=== PATIENT | male | born 1980 | race Caucasian/White ===

== ENCOUNTER 2020-06-12 11:28 | Observation (INO) | payer SELFPAY ==
[2020-06-12] VITALS (7 sets, daily range): BP systolic 111–137; BP diastolic 70–84; PULSE 70–101; RESP 16–18; TEMP 35.8–36.7; O2SAT 90–100; BMI 22.3
--- NOTE | 2020-06-12 11:38 | CT_ITS ---
WS: [id number] CT NECK TECHNIQUE: Contrast-enhanced CT of the neck with coronal and sagittal reformatted images. CLINICAL INFORMATION: peritonsillar abscess; swollen uvula COMPARISON: None. DLP: 621.[address] scans at [facility] use at least one of these dose optimization techniques: automat ed exposure control; mA and/or kV adjustment per patient size (includes targeted exams where dose is matched to clinical indication); or iterative reconstruction. FINDINGS: Heterogeneously enhancing central low attenuation left tonsillar and peritonsillar abscess measuring 1.8 x 3.1 x 2.7 CM. Associated edema and mass effect in the posterior oropharynx and parapharyngeal f at. Diffuse edema with enlargement of the uvula. Left to right mass effect on the adjacent airway wit h mild oropharyngeal narrowing. Edema in the left pharyngeal soft tissues extending to the vallecula and left piriform sinus. Subglottic airway is patent. Normal glottis. Reactive left submandibular and cervical lymph nodes.Normal thyroid gland. Lung apices are well aerat ed. Mastoid air cells and paranasal sinuses are well aerated. Partially visualized intracranial jennifer nts are normal. CT/CT neck w con* [id number] IMPRESSION: 1. Left tonsillar and peritonsillar abscess with central low-attenuation hsieh e and thick peripheral enhancement. This measures 1.8 x 3.0 x 2.8 cm. 2. Associated mass effect on the left oropharynx with mild oropharyngeal narro wing. Edema in the left parapharyngeal soft tissues. 3. Diffuse edema with enlargement of the uvula. 4. Enlarged reactive left subarticular cervical lymphadenopathy. 5. Normal glottis and subglottic airway. 6. Paranasal sinuses and mastoid air cells are well aerated. Notified GUANAKO Centeno at 06/12/2020 12:09 PM.
--- NOTE | 2020-06-12 11:41 | W.ED.GENADLT ---
Documented by User: GUANAKO Centeno 06/12/20 13:57 HPI - General Adult General: Chief complaint: General Medical Stated complaint: SWOLLEN THROAT Time Seen by Provider: 06/12/20 11:29 Source: patient Mode of arrival: ambulatory Limitations: no limitations History of Present Illness: HPI narrative: Patient is a nice 40-year-old male who presents to ED today for evaluation of a sore throat. Patient tells me his throat began hurting on Thursday. He states since that time it has progressively worsened, feeling more and more swollen. Patient tells me he is having trouble drinking and controlling his saliva. He has not been running fevers. No sick contacts. Onset (ago): day(s) Location: mouth (throat) Severity: severe Pain Consistency: constant Relieving factors: none Exacerbating factors: other (swallowing/talking) Associated symptoms: Reports no associated symptoms; Deny chest pain, dyspnea, headache(s), malaise, nausea, rash or vomiting Treatments prior to arrival: none Review of Systems Const: Denies: fever(s), chills, body aches, fatigue or malaise Eyes: Denies: change in vision, blurry vision or photophobia ENMT: Reports: throat pain, uvular edema, enlarged tonsils and odynophagia Card: Denies: chest pain Resp: Denies: dyspnea GI: Denies: abdominal pain, nausea or vomiting Musc: Denies: neck pain, back pain or joint pain Skin/Breast: Denies: rash Neuro: Denies: headache(s) Physical Exam Const: COMMON NORMALS: no acute distress, average body habitus, patient oriented x3, no limitations, healthy appearing, alert and well nourished GENERAL APPEARANCE: cooperative ORIENTATION/CONSCIOUSNESS: Yes awake, Yes oriented to person, Yes oriented to place and Yes oriented to time HENMT: COMMON NORMALS: normocephalic, atraumatic, hearing grossly normal bilaterally, external ears normal, EAC's normal, TM's normal bilaterally, Normal external nose present and gingiva normal HEAD & SCALP: normal to inspection, normocephalic and atraumatic FACE & SINUS: normal facial exam NOSE: Normal external nose present EXTERNAL EAR: Yes external ears normal EXTERNAL AUDITORY CANAL: EAC's normal TYMPANIC MEMBRANE: TM's normal bilaterally THROAT: peritonsillar mass, posterior oropharynx abnormal and uvular edema OTHER: hot potato voice; 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 HAND; swelling extends into his uvula so much so that it looks like one large collection; because of this there is no obvious uvular deviation Eye: GENERAL EYE: appearance normal, both eyes and all related structures Neck/C-Spine: COMMON NORMALS: full ROM and no meningeal signs GENERAL: No anterior neck swelling and Yes lymphadenopathy Lymphadenopathy location: anterior cervical CERVICAL SPINE: Yes cervical ROM normal Resp: COMMON NORMALS: normal respiratory effort and clear to auscultation bilaterally AUSCULTATION: clear to auscultation bilaterally Cardio: COMMON NORMALS: regular rhythm RATE: tachycardic (very mild) RHYTHM: regular rhythm Neuro: ABEL COMA SCALE: document GCS findings Abel coma scale eye opening: Spontaneous Abel coma scale verbal response: Orientated Abel coma scale motor response: Obey commands Abel coma scale total score: 15 COMMON NORMALS: patient oriented x3 SENSORIUM/ORIENTATION: Yes alert, Yes oriented to person, Yes oriented to place and Yes oriented to time MENINGEAL SIGNS: Yes no meningeal signs Skin: COMMON NORMALS: no rashes or lesions noted GENERAL SKIN EXAM: no rashes or lesions noted Course Consultations: Consultation #1: Dr. Stokes-recommends admitting to hospitalist and he will evaluate and potentially drain ENDBAND CUTTER HAND this evening Vital Signs: Vital signs: Vital Signs Temperature 98.0 F 06/12/20 11:35 Pulse Rate 74 06/12/20 14:07 Respiratory Rate 18 06/12/20 14:07 Blood Pressure 129/74 06/12/20 14:07 Pulse Oximetry 97 06/12/20 14:07 MDM - General Adult MDM Narrative: Medical decision making narrative: Patient is a nice 40-year-old male here with a left-sided peritonsillar abscess. He is having trouble swallowing and controlling his secretions. His airway is patent evident on his CT scan. Patient was started on IV dexamethasone and clindamycin. I have spoken to Dr. Stokes, ENT who recommends admit to hospitalist and he will consult on patient this evening. Patient is mildly tachycardic. He has a 22,000 white count. Lactate is normal. Strep is negative. Lab Data: Labs: Lab Results 06/12/20 06/12/20 06/12/20 Range/Units 11:45 11:45 11:45 WBC 22.6 H (4.0-10.0) 10^3/ uL RBC 5.12 (4.1-5.3) 10^6/u L Hgb 16.1 (11.7-16.6) g/dL Hct 47.5 (42.0-52.0) % MCV 92.8 (80-94) fL MCH 31.4 (28.0-34.0) pg MCHC 33.9 (30.0-36.0) g/dL RDW 12.0 L (12.1-15.1) % Plt Count 226 (130-400) 10^3/c mm MPV 9.6 (7.4-10.4) fL Neut % (Auto) 82.1 % Lymph % (Auto) 8.3 % Mower % (Auto) 8.0 % Eos % (Auto) 0.4 % Baso % (Auto) 0.4 % Neut # (Auto) 18.54 H (1.8-7.7) 10^3/u L Lymph # (Auto) 1.9 (0.8-4.8) 10^3/u L Mower # (Auto) 1.8 H (0.2-0.9) 10^3/u L Eos # (Auto) 0.1 (0.0-0.8) 10^3/u L Baso # (Auto) 0.1 (0.0-0.1) 10^3/u L Nucleated RBC % (a uto) 0 % Nucleated RBCs # 0.0 /100WBC Sodium 137 (136-145) mmol/L Potassium 4.4 (3.5-5.1) mmol/L Chloride 100 (98-107) mmol/L Carbon Dioxide 27 (22-29) mmol/L Anion Gap 14.4 (5-19) BUN 6 (6-20) mg/dL Creatinine 0.7 (0.7-1.2) mg/dL GFR Calculation 124.9 (90-130) mL/min Glucose 123 H (65-115) mg/dL Calculated Osmolal ity 283 L (285-295) mOsm/k g Lactic Acid 1.6 (0.5-2.2) mmol/L Calcium 9.4 (8.5-10.5) mg/dL Total Bilirubin 1.4 H (0.15-1.2) mg/dL AST 13 (0-40) U/L ALT 11 (0-41) U/L Alkaline Phosphata se 89 (40-130) IU/L Total Protein 7.6 (6.6-8.7) g/dL Albumin 4.4 (3.5-5.2) g/dL Globulin 3.2 (1.3-4.6) g/dL Group A Strep Rapi d (Negative) 06/12/20 Range/Units 12:03 WBC (4.0-10.0) 10^3/ uL RBC (4.1-5.3) 10^6/u L Hgb (11.7-16.6) g/dL Hct (42.0-52.0) % MCV (80-94) fL MCH (28.0-34.0) pg MCHC (30.0-36.0) g/dL RDW (12.1-15.1) % Plt Count (130-400) 10^3/c mm MPV (7.4-10.4) fL Neut % (Auto) % Lymph % (Auto) % Mower % (Auto) % Eos % (Auto) % Baso % (Auto) % Neut # (Auto) (1.8-7.7) 10^3/u L Lymph # (Auto) (0.8-4.8) 10^3/u L Mower # (Auto) (0.2-0.9) 10^3/u L Eos # (Auto) (0.0-0.8) 10^3/u L Baso # (Auto) (0.0-0.1) 10^3/u L Nucleated RBC % (a uto) % Nucleated RBCs # /100WBC Sodium (136-145) mmol/L Potassium (3.5-5.1) mmol/L Chloride (98-107) mmol/L Carbon Dioxide (22-29) mmol/L Anion Gap (5-19) BUN (6-20) mg/dL Creatinine (0.7-1.2) mg/dL GFR Calculation (90-130) mL/min Glucose (65-115) mg/dL Calculated Osmolal ity (285-295) mOsm/k g Lactic Acid (0.5-2.2) mmol/L Calcium (8.5-10.5) mg/dL Total Bilirubin (0.15-1.2) mg/dL AST (0-40) U/L ALT (0-41) U/L Alkaline Phosphata se (40-130) IU/L Total Protein (6.6-8.7) g/dL Albumin (3.5-5.2) g/dL Globulin (1.3-4.6) g/dL Group A Strep Rapi d Negative (Negative) Imaging Data^: CT neck: Radiologist's impression: [facility] [address] [place] [address] CT Scan Report Signed Patient: Sam Maldonado Unit #: [id number] : [id number] Age/Sex: 40 / M ADM Date: 06/12/20 Loc: ER Room/Bed: Attending Dr: Ordering Provider/Ordering MD: Tierra Reid Date of Service: 06/12/20 Procedure(s): CT neck w con* [id number] Accession Number(s): [id number] Report Number: [id number] WS: [id number] CT NECK TECHNIQUE: Contrast-enhanced CT of the neck with coronal and sagittal reformatted images. CLINICAL INFORMATION: peritonsillar abscess; swollen uvula COMPARISON: None. DLP: 621.[address] scans at [facility] use at least one of these dose optimization techniques: automated exposure control; mA and/or kV adjustment per patient size (includes targeted exams where dose is matched to clinical indication); or iterative reconstruction. FINDINGS: Heterogeneously enhancing central low attenuation left tonsillar and peritonsillar abscess measuring 1.8 x 3.1 x 2.7 CM. Associated edema and mass effect in the posterior oropharynx and parapharyngeal fat. Diffuse edema with enlargement of the uvula. Left to right mass effect on the adjacent airway with mild oropharyngeal narrowing. Edema in the left pharyngeal soft tissues extending to the vallecula and left piriform sinus. Subglottic airway is patent. Normal glottis. Reactive left submandibular and cervical lymph nodes.Normal thyroid gland. Lung apices are well aerated. Mastoid air cells and paranasal sinuses are well aerated. Partially visualized intracranial contents are normal. CT/CT neck w con* [id number] IMPRESSION: 1. Left tonsillar and peritonsillar abscess with central low-attenuation change and thick peripheral enhancement. This measures 1.8 x 3.0 x 2.8 cm. 2. Associated mass effect on the left oropharynx with mild oropharyngeal narrowing. Edema in the left parapharyngeal soft tissues. 3. Diffuse edema with enlargement of the uvula. 4. Enlarged reactive left subarticular cervical lymphadenopathy. 5. Normal glottis and subglottic airway. 6. Paranasal sinuses and mastoid air cells are well aerated. Notified GUANAKO Centeno at 06/12/2020 12:09 PM. Dictated By: Zach Almendarez MD Signed By: Zach Almendarez MD Signed Date/Time: 06/12/20 1209 DD/ 1200 Discharge Plan Discharge Patient Disposition: Admitted As Inpatient Clinical Impression: Peritonsillar abscess Condition: Stable Coding Level of Care Code ED Mop Maker for Chg Fwd Exam Comprehensive Documented by User: Aden Das MD 06/12/20 14:21 HPI - General Adult General: Chief complaint: General Medical Stated complaint: SWOLLEN THROAT Time Seen by Provider: 06/12/20 11:29 Course Vital Signs: Vital signs: Vital Signs Temperature 98.0 F 06/12/20 11:35 Pulse Rate 74 06/12/20 14:07 Respiratory Rate 18 06/12/20 14:07 Blood Pressure 129/74 06/12/20 14:07 Pulse Oximetry 97 06/12/20 14:07 MDM - General Adult MDM Narrative: Medical decision making narrative: Took over care of this patient from midlevel provider. Discussed with who accepts to [facility]. Dr. Stokes is to see the patient tonight. No dyspnea in the ED. Dr. Stokes may drain later today. Lab Data: Labs: Lab Results 06/12/20 06/12/20 06/12/20 Range/Units 11:45 11:45 11:45 WBC 22.6 H (4.0-10.0) 10^3/ uL RBC 5.12 (4.1-5.3) 10^6/u L Hgb 16.1 (11.7-16.6) g/dL Hct 47.5 (42.0-52.0) % MCV 92.8 (80-94) fL MCH 31.4 (28.0-34.0) pg MCHC 33.9 (30.0-36.0) g/dL RDW 12.0 L (12.1-15.1) % Plt Count 226 (130-400) 10^3/c mm MPV 9.6 (7.4-10.4) fL Neut % (Auto) 82.1 % Lymph % (Auto) 8.3 % Mower % (Auto) 8.0 % Eos % (Auto) 0.4 % Baso % (Auto) 0.4 % Neut # (Auto) 18.54 H (1.8-7.7) 10^3/u L Lymph # (Auto) 1.9 (0.8-4.8) 10^3/u L Mower # (Auto) 1.8 H (0.2-0.9) 10^3/u L Eos # (Auto) 0.1 (0.0-0.8) 10^3/u L Baso # (Auto) 0.1 (0.0-0.1) 10^3/u L Nucleated RBC % (a uto) 0 % Nucleated RBCs # 0.0 /100WBC Sodium 137 (136-145) mmol/L Potassium 4.4 (3.5-5.1) mmol/L Chloride 100 (98-107) mmol/L Carbon Dioxide 27 (22-29) mmol/L Anion Gap 14.4 (5-19) BUN 6 (6-20) mg/dL Creatinine 0.7 (0.7-1.2) mg/dL GFR Calculation 124.9 (90-130) mL/min Glucose 123 H (65-115) mg/dL Calculated Osmolal ity 283 L (285-295) mOsm/k g Lactic Acid 1.6 (0.5-2.2) mmol/L Calcium 9.4 (8.5-10.5) mg/dL Total Bilirubin 1.4 H (0.15-1.2) mg/dL AST 13 (0-40) U/L ALT 11 (0-41) U/L Alkaline Phosphata se 89 (40-130) IU/L Total Protein 7.6 (6.6-8.7) g/dL Albumin 4.4 (3.5-5.2) g/dL Globulin 3.2 (1.3-4.6) g/dL Group A Strep Rapi d (Negative) 06/12/20 Range/Units 12:03 WBC (4.0-10.0) 10^3/ uL RBC (4.1-5.3) 10^6/u L Hgb (11.7-16.6) g/dL Hct (42.0-52.0) % MCV (80-94) fL MCH (28.0-34.0) pg MCHC (30.0-36.0) g/dL RDW (12.1-15.1) % Plt Count (130-400) 10^3/c mm MPV (7.4-10.4) fL Neut % (Auto) % Lymph % (Auto) % Mower % (Auto) % Eos % (Auto) % Baso % (Auto) % Neut # (Auto) (1.8-7.7) 10^3/u L Lymph # (Auto) (0.8-4.8) 10^3/u L Mower # (Auto) (0.2-0.9) 10^3/u L Eos # (Auto) (0.0-0.8) 10^3/u L Baso # (Auto) (0.0-0.1) 10^3/u L Nucleated RBC % (a uto) % Nucleated RBCs # /100WBC Sodium (136-145) mmol/L Potassium (3.5-5.1) mmol/L Chloride (98-107) mmol/L Carbon Dioxide (22-29) mmol/L Anion Gap (5-19) BUN (6-20) mg/dL Creatinine (0.7-1.2) mg/dL GFR Calculation (90-130) mL/min Glucose (65-115) mg/dL Calculated Osmolal ity (285-295) mOsm/k g Lactic Acid (0.5-2.2) mmol/L Calcium (8.5-10.5) mg/dL Total Bilirubin (0.15-1.2) mg/dL AST (0-40) U/L ALT (0-41) U/L Alkaline Phosphata se (40-130) IU/L Total Protein (6.6-8.7) g/dL Albumin (3.5-5.2) g/dL Globulin (1.3-4.6) g/dL Group A Strep Rapi d Negative (Negative) Discharge Plan Discharge Patient Disposition: Admitted As Inpatient Clinical Impression: Peritonsillar abscess Condition: Stable Coding Level of Care Code ED Mop Maker for Nahomy Fwd Exam Comprehensive
[2020-06-12] MEDS: iohexol 300 mg/mL 100 mL Btl IV (11:53)
[2020-06-12] MEDS: dexamethasone 10 mg/mL INJ IM (11:57)
[2020-06-12] MEDS: clindamycin 900 MG/50 ML PREMIX 100 MG IV (11:58)
[2020-06-12 12:03] LABS: Basophils # 0.1 10^3/uL (0.0-0.1); Basophils % 0.4 %; Eosinophils # 0.1 10^3/uL (0.0-0.8); Eosinophils % 0.4 %; Hematocrit 47.5 % (42.0-52.0); Hemoglobin 16.1 g/dL (11.7-16.6); Lymphocytes # 1.9 10^3/uL (0.8-4.8); Lymphocytes % 8.3 %; Mean Corpuscular HGB Conc 33.9 g/dL (30.0-36.0); Mean Corpuscular Hemoglobin 31.4 pg (28.0-34.0); Mean Corpuscular Volume 92.8 fL (80-94); Mean Platelet Volume 9.6 fL (7.4-10.4); Monocytes # 1.8 10^3/uL (0.2-0.9); Neutrophils # 18.54 10^3/uL (1.8-7.7); Neutrophils % 82.1 %; Nucleated Red Blood Cells % 0 %; Platelet Count 226 10^3/cmm (130-400); Red Blood Count 5.12 10^6/uL (4.1-5.3); White Blood Count 22.6 10^3/uL (4.0-10.0)
[2020-06-12 12:36] LABS: Rapid Strep A Test Negative (Negative)
[2020-06-12 12:37] LABS: Lactic Sepsis W/Reflex 1.6 mmol/L (0.5-2.2)
[2020-06-12 12:38] LABS: Alanine Aminotransferase 11 U/L (0-41); Albumin Level 4.4 g/dL (3.5-5.2); Alkaline Phosphatase 89 IU/L (40-130); Aspartate Amino Transferase 13 U/L (0-40); Blood Urea Nitrogen 6 mg/dL (6-20); Calcium 9.4 mg/dL (8.5-10.5); Carbon Dioxide 27 mmol/L (22-29); Chloride 100 mmol/L (98-107); Globulin 3.2 g/dL (1.3-4.6); Glomerular Filtration Rate 124.9 mL/min (90-130); Glucose 123 mg/dL (65-115); Osmolality Calculated 283 mOsm/kg (285-295); Sodium 137 mmol/L (136-145); Total Bilirubin 1.4 mg/dL (0.15-1.2); Total Protein 7.6 g/dL (6.6-8.7)
[2020-06-12 12:45] LABS: Anion Gap 14.4 (5-19); Potassium 4.4 mmol/L (3.5-5.1)
--- NOTE | 2020-06-12 17:20 | P.CONIM_ITS ---
Providers/Reason For Consult Consulting Physican/Specialty*: Helio Stokes MD Otolaryngology, Head and Neck Surgery Reason for Consult*: Left peritonsillar abscess Attending Physician: Ezequiel Thibodeaux DO History of Present Illness History of Present Illness Sam Maldonado is a 40 year old male with a one week h/o increasing sorethroat and trismus, especially on the left side of his throat. The patient presented to the ER today for treatment and I was contacted for possible I&D of a left peritonsillar abscess that was seen on a neck CT with IV contrast that was done in the ER. The patient denies any SOB, but reports difficulty swallowing. The patient denies any fever or chest pain, and is o/w without c/o. The patient denies any other noted palliative or provocative factors, and describes his current symptoms as moderately severe. Review of Systems General: Reports: 10 or more systems reviewed and unremarkable except in HPI and below Meds/Allergies Home Medications and Allergies Home Medications Medication Instructions Recorded Confirmed Last Taken Type No Known Home Medications 06/12/20 06/12/20 Unknown History Allergies Allergy/AdvReac Type Severity Reaction Status Date / Time No Known Allergies Allergy Verified 06/12/20 11:54 Vitals/I&O/Wt Last Vital Signs Temp 96.4 F L 06/12/20 16:00 Pulse 70 06/12/20 16:00 Resp 16 06/12/20 16:00 BP 137/72 06/12/20 16:00 Pulse Ox 97 06/12/20 16:00 06/12/20 06/12/20 06/12/20 06:59 14:59 22:59 Intake Total 50 / 50 Balance 50 / 50 Weight last 48 hrs Weight 58.967 kg Physical Exam HENMT: COMMON NORMALS: normocephalic, atraumatic and external ears normal HEAD & SCALP: normocephalic and atraumatic EXTERNAL EAR: Yes external ears normal MOUTH: tongue normal, drooling, malodorous breath, muffled voice, trismus and other (There was significant swelling of the left tonsillar pillar.) Eye: COMMON NORMALS: EOMs intact bilaterally and conjunctivae normal CONJUNCTIVA: Yes conjunctivae normal Lymph: LYMPHATIC: no lymphadenopathy noted Resp: COMMON NORMALS: normal respiratory effort and clear to auscultation bilaterally AUSCULTATION: clear to auscultation bilaterally Data Other Data: Attestation for Other Data: I personally reviewed and interpreted the following: Other data: I reviewed the patient's CT scan that was done today. A&P Additional A&P Information Impression: 40 yo wm with a left peritonsillar abscess Plan: - I&D of left peritonsillar abscess performed at the bedside - I recommend IV Cleocin Q6 hours overnight, then change to 300mg po QID x 10 days at discharge - I recommend 40mg of Kenalog IM tonight - IV hydration overnight, then d/c in the morning if the patient is doing well - The patient can f/u with me in one week - Regular diet as tolerated - Please contact me for any problems. O/W, the patient is to f/u with me as an outpatient in one week. Consult Attestations Medical Necessity Statement: I was contacted to perform an I&D of the patient's left peritonsillar abscess. Procedures Procedure Narrative Written informed consent was obtained; the patient's mouth was sprayed with Hurricaine spray, and the left tonsillar superior pole was injected wiht 2mL of 1% lidocaine with Epi; purulent material was aspirated from the left tonsil superior pole; a horizontal incision was made at the superior pole of the tonsil with a #11 blade, and the wound was probed and opened with a tonsil clamp; 10mL of purulent material was then drained from a left peritonsillar abscess; the patient tolerated the procedure well, and there were no complications. Coding Level of Care Code Acute Director Prospect for Nahomy Boo
[2020-06-12] MEDS: triamcinolone 40 mg/mL SDV IM (17:57)
[2020-06-12] MEDS: sodium chloride 0.9% 1,000 ML 75 ML IV (17:58)
[2020-06-12] MEDS: clindamycin 600 MG/50 ML PREMIX 100 MG IV (17:58)
[2020-06-12] MEDS: ketorolac 30 mg/mL INJ IVP (17:58)
--- NOTE | 2020-06-12 19:19 | PM.HP ---
Providers/Chief Complaint Admitting Physician: Ezequiel Thibodeaux DO Chief Complaint: SWOLLEN THROAT History of Present Illness Sam Maldonado is a 40 year old male without significant past medical history presents after a few days of throat pain. The patient was having trouble drinking and talking. He was even having trouble controlling his saliva. He denies any fevers or other sick contacts. His symptoms were getting progressively worse until finally his convinced him to come to the emergency room. His pain is severe its constant there were no relieving factors swallowing and talking did make it worse no other associated symptoms. Denies chest pain shortness of breath headaches malaise nausea vomiting Review of Systems General: Reports: 10 or more systems reviewed and unremarkable except in HPI and below Resp: Reports: other (Smoking 1 pack/day) Psych: Reports: anxiety Medications/Allergies Home Medications Medication Instructions Recorded Confirmed Last Taken Type No Known Home Medications 06/12/20 06/12/20 Unknown History Allergies Allergy/AdvReac Type Severity Reaction Status Date / Time No Known Allergies Allergy Verified 06/12/20 11:54 PFSH Acute PFSH: Surgical History History of appendectomy Social History Smoking and tobacco status: current every day smoker Smoking risk assessment/counseling performed?: Yes Alcohol intake: unknown Substance/Drug Use: unknown Household members: spouse and children Marital status: Current occupational status: unemployed 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 peritonsillar abscess 2. peritonsillar abscess THROAT: abnormal tonsil (enlarged right tonsil now with incision seen) right Eye: COMMON NORMALS: Equal, round and reactive pupils present and EOMs intact bilaterally Neck/C-Spine: COMMON NORMALS: full ROM, no lymphadenopathy and supple Lymph: LYMPHATIC: no lymphadenopathy noted Chest: COMMONS NORMALS: normal inspection of the chest and normal palpation of entire chest wall Resp: COMMON NORMALS: normal respiratory effort EFFORT & INSPECTION: Yes audible wheezes (on forced expiration of upper airways) AUSCULTATION: diminished lung sounds (mild in upper airways) Cardio: COMMON NORMALS: no JVD, regular rate, regular rhythm, S1 normal heart sound present, S2 normal heart sound present, No gallops present (Cardio), No clicks present (Cardio), No murmurs present (Cardio), No rub (Cardio) and Peripheral pulses 2+ throughout GI: COMMON NORMALS: Normal to inspection, nondistended, normoactive bowel sounds present, Soft to palpation, non-tender, No hepatosplenomegaly present and no masses : COMMON NORMALS: Yes no CVA tenderness and Yes normal external exam Back/Pelvis: COMMON NORMALS: thoracic and lumbar spine normal to inspection Extremity: COMMON NORMALS: no clubbing, cyanosis or edema and no calf tenderness Neuro: COMMON NORMALS: patient oriented x3 and CN's II-XII intact bilaterally SENSORIUM/ORIENTATION: Yes alert, Yes oriented to person, Yes oriented to place, Yes oriented to time and Yes Orientation impaired Psych: COMMON NORMALS: mental status grossly normal APPEARANCE: Yes grossly normal ATTITUDE: Yes engaged ACTIVITY/MOTOR BEHAVIOR: Yes appropriate eye contact MOOD & AFFECT: Yes anxious Skin: COMMON NORMALS: no rashes or lesions noted Data : 06/12/20 11:45 06/12/20 11:45 A&P Assessment and plan (1) Peritonsillar abscess: Pt given steroids and abx in ED. ENT performed I and D. Phsyician and I spoke. Ordered Kenalog 40 IM and clindamycin IV for now. Plan to discharge home on 10day course and he will follow up in office in 1 week. Status: Acute (2) Tobacco abuse: The patient reports smoking 1 pack/day for approximately 20 years. He believes that is not too much. He states he has quit before the longest time for a year and a half. He wants to quit and asked for assistance. We discussed best option of nicotine replacement therapy with antidepressive/antianxiety medications. He is agreeable to treatment. At this time he does not have insurance and will investigate a [facility] $4 medication if possible. We will start on nicotine patch while he is here. Status: Acute (3) Anxiety: Plan to start antidepressant with antianxiolytic efficacy upon discharge. I did advise that he have a primary care doctor for follow-up. He is agreeable. Status: Acute Attestations Medical Necessity Statement*: Patient with. Tonsillar abscess with impending respiratory failure. Required I&D and IV antibiotics. Coding Level of Care Code Acute Orthopaedic Physician Assistant for Nahomy Boo Diagnoses Peritonsillar abscess J36 Tobacco abuse Z72.0 Anxiety F41.9
[2020-06-13 00:12] VITALS: BP 116/58; PULSE 82; RESP 18; TEMP 36.6; O2SAT 98
--- NOTE | 2020-06-13 00:33 | PC.NURSE ---
Advance diet Spoke to physician at pt request, pt states, Im hungry, please ask doctor to let me have something more than liquids. Physician response is to advance to regular diet in the morning.
[2020-06-13] MEDS: clindamycin 600 MG/50 ML PREMIX 100 MG IV (01:07)
[2020-06-13 05:27] VITALS: BP 113/62; PULSE 87; RESP 18; TEMP 36.6; O2SAT 98
[2020-06-13] MEDS: sodium chloride 0.9% 1,000 ML 75 ML IV (06:00)
[2020-06-13 07:18] VITALS: BP 119/72; PULSE 79; RESP 18; TEMP 36.4; O2SAT 98
--- NOTE | 2020-06-13 09:41 | PC.CHAP ---
Pastoral Care Encounter/Spiritual Assessment Type of Contact [] Declined associate merchandise planner visit [] Patient/Family/Request visit [] Outpatient visit [] Follow-up visit [] Physician referral [] Code/Alert [x] Routine visit [] Staff referral [] Actively dying [] Patient sleeping [] Family support [] [] Out of room [] Palliative care [] [] Receiving care in room [] Pre-surgical visit [] Trauma [] Long length of stay [] ICU visit [] Other: Relational/Emotional Strength [x] Patient feels connected with others/family/visitors/staff [] Distress [] Loneliness/isolation [] Abandonment Spirituality of Patient [x] Person of [place] [] Attends Episcopal of their [place] [] Believes in Prayer [] Reads Bible or Mu-Ism materials [] There are Spiritual issues to be addressed Metal Pattern [employer] Interventions [x] Prayer [x] Active listening [] Non-anxious presence [] Spiritual/emotional support [] Crisis/trauma care [] Spiritual counseling [] Bereavement support [] Provided bereavement packet [] Provided Bible/devotional materials [] Provided toy/stuffed animal, coloring book to patient or family member [] Provided Communion [] Anointing/[place] [] Salvation [x] Completed spiritual assessment [] Other: Impact on Illness or Injury [] Angry [] Fearful [] Anxious [] Often cries [] Exhaustion [] Unable to work [] Unable to attend cheondoism [] Unable to walk/stand [] Unable to read [] Unable to drive [] Unable to eat/drink [] Unable to sleep [] Unable to be with family [] Patient intubated [] Other: Summary patient feeling so much better very happy with care received Time spent with patient 10 min
--- NOTE | 2020-06-13 11:59 | P.DS_ITS ---
Discharge Providers Date of Admission: 06/12/20 14:17 Date of Discharge: June 13, 2020 Attending Provider at Admission: Ezequiel Thibodeaux DO Attending Provider at Discharge: Ezequiel Thibodeaux DO Diagnoses at Discharge Discharge Diagnosis (1) Peritonsillar abscess: Status: Acute (2) Tobacco abuse: Status: Acute (3) Anxiety: Status: Acute Reason for Visit Reason for Visit: SWOLLEN THROAT Hospital Course Hospital Course Patient presented with severe left peritonsillar abscess. Was given antibiotics steroids and pain medication in the emergency room. He was admitted to await ENT consultation. ENT was able to perform bedside I&D. Patient had marked relief and decrease swelling at that point. Received a dose of Kenalog IM x1 and continued on IV clindamycin the following day patient felt close to baseline he is able to eat anything he can clear his secretions and is without significant pain During admission it was noticed that the patient is highly anxious he also has tobacco abuse but interested in quitting. We discussed options of quitting and he chose nicotine replacement therapy along with antidepressant with anxiolytic therapy. He will be prescribed Cymbalta 30 mg nightly which was found on the [employer] formulary for lower cost. He will obtain nicotine patch as an outpatient. And finally he will complete a 10-day course of clindamycin. Physical Exam Const: COMMON NORMALS: no acute distress, average body habitus, patient oriented x3 and alert HENMT: THROAT: posterior oropharynx abnormal (marked improvement from last evening. ) edema and erythema Neck/C-Spine: COMMON NORMALS: no JVD Resp: COMMON NORMALS: normal respiratory effort and clear to auscultation bilaterally AUSCULTATION: clear to auscultation bilaterally and diminished lung sounds Cardio: COMMON NORMALS: no JVD, regular rate and regular rhythm RATE: regular rate RHYTHM: regular rhythm GI: COMMON NORMALS: Normal to inspection, nondistended, normoactive bowel sounds present, Soft to palpation, non-tender and no masses PALPATION: Yes Soft to palpation Extremity: COMMON NORMALS: normal to inspection, no calf tenderness and no pedal edema Neuro: COMMON NORMALS: patient oriented x3 SENSORIUM/ORIENTATION: Yes alert Discharge Data Data Completed and Pending: Completed Studies During Hospitalization Category Date Time Status CT neck w con* [id number] Urgent Cat Scan 06/12/20 11:38 Completed Pending at discharge Category Date Time Status Streptococcus Cul ture Group A Stat Lab 06/12/20 12:03 Received Labs from last 24 hours 06/12/20 06/12/20 06/12/20 12:03 11:45 11:45 WBC RBC Hgb Hct MCV MCH MCHC RDW Plt Count MPV Neut % (Auto) Lymph % (Auto) [place] % (Auto) Eos % (Auto) Baso % (Auto) Neut # (Auto) Lymph # (Auto) [place] # (Auto) Eos # (Auto) Baso # (Auto) Nucleated RBC % (a uto) Nucleated RBCs # Sodium 137 Potassium 4.4 Chloride 100 Carbon Dioxide 27 Anion Gap 14.4 BUN 6 Creatinine 0.7 GFR Calculation 124.9 Glucose 123 H Calculated Osmolal ity 283 L Lactic Acid 1.6 Calcium 9.4 Total Bilirubin 1.4 H AST 13 ALT 11 Alkaline Phosphata se 89 Total Protein 7.6 Albumin 4.4 Globulin 3.2 Group A Strep Rapi d Negative 06/12/20 11:45 WBC 22.6 H RBC 5.12 Hgb 16.1 Hct 47.5 MCV 92.8 MCH 31.4 MCHC 33.9 RDW 12.0 L Plt Count 226 MPV 9.6 Neut % (Auto) 82.1 Lymph % (Auto) 8.3 [place] % (Auto) 8.0 Eos % (Auto) 0.4 Baso % (Auto) 0.4 Neut # (Auto) 18.54 H Lymph # (Auto) 1.9 [place] # (Auto) 1.8 H Eos # (Auto) 0.1 Baso # (Auto) 0.1 Nucleated RBC % (a uto) 0 Nucleated RBCs # 0.0 Sodium Potassium Chloride Carbon Dioxide Anion Gap BUN Creatinine GFR Calculation Glucose Calculated Osmolal ity Lactic Acid Calcium Total Bilirubin AST ALT Alkaline Phosphata se Total Protein Albumin Globulin Group A Strep Rapi d Vitals: Last Vital Signs Temp 97.6 F 06/13/20 07:18 Pulse 79 06/13/20 07:18 Resp 18 06/13/20 07:18 BP 119/72 06/13/20 07:18 Pulse Ox 98 06/13/20 07:18 Discharge Plan Discharge Patient Disposition: Home Condition: Stable Prescriptions: New ibuprofen 200 mg Tablet 400 mg PO Q6H PRN (Reason: Mild/Mod Pain Or Temp >/= 101) Qty: 30 RF: 0 clindamycin HCl 300 mg capsule 300 mg PO Q8H 10 Days Qty: 30 RF: 0 duloxetine [Cymbalta] 30 mg capsule,delayed release(DR/EC) 30 mg PO .QHS Qty: 90 RF: 0 No Action No Known Home Medications RF: 0 Discharge Orders: Discharge Order (Routine); Ordered 06/13/20 Ordered By: Ezequiel Thibodeaux Referrals: Helio Stokes MD [Physician] - 06/22/20 8:00 am Discharge Diet: Advance as tolerated Discharge Activity: Resume usual activity Activity Restrictions/Additional Instructions: Pt to find PCP at [facility] locally. Follow up with Dr. Stokes (ENT) in one week. Discharge Attestations Time Spent in Discharge Care*: less than 30 min Specific Discharge Activities: educating patient and educating and/or supporting family/caregiver Time Spent in Smoking Cessation: 3 to 10 minutes Quality Metrics Clinical Quality Measures During this hospital stay, did patient experience: None Coding Level of Care Code Acute Bend Up for Toyg Fwd Diagnoses Peritonsillar abscess J36 Tobacco abuse Z72.0 Anxiety F41.9
[2020-06-13 12:00] VITALS: BP 126/84; PULSE 74; RESP 17; TEMP 37; O2SAT 96
[2020-06-13 12:38] VITALS: BP 126/84; PULSE 74; RESP 17; TEMP 37; O2SAT 96
--- NOTE | 2020-06-13 13:03 | DCPLANNER ---
marketing intelligence manager received message to schedule sliding scale appointment for patient. marketing intelligence manager called [facility] and scheduled appointment for Thursday06/13/20 @ 11:30am. She stated patient must be there 30 minutes early and have either his 2019 or 2018 tax return. marketing intelligence manager called patient and provided appointment information.
--- NOTE | 2020-06-14 15:44 | PC.RESP ---
SMOKING CESSATION INFORMATION SENT TO PATIENT.
== END 2020-06-13 12:38 | disposition home or self-care (01) ==
LOC: ER 14:21 → MEDSURG 06-13 05:48
PROVIDERS: Physician Assistant; Admitting Provider Internal Medicine; Emergency Provider Family Medicine; Visit Provider Internal Medicine
DX: J36 Peritonsillar abscess (principal); F41.9 Anxiety disorder, unspecified; F17.210 Nicotine dependence, cigarettes, uncomplicated
CPT/HCPCS: 42700; 12345; 70491; 80053; 83605; 85025; 87081; 87880; 96361; 96365; 96367; 96372; 96375; 99285; G0378; J1100; J1885; J3301; J3490; J7030; Q9967